=== PATIENT | male | born 1980 | race Caucasian/White ===

== ENCOUNTER 2024-09-09 16:11 | Emergency (ER) | payer BC, OTHER ==
[~2024-09-09] VITALS: Ht 188 cm; Wt 127.2 kg
[2024-09-09 16:42] VITALS: BP 117/76; PULSE 78; RESP 17; TEMP 98.1; O2SAT 98
--- NOTE | 2024-09-09 17:13 | ED.PDOC ---
HPI Comments A 44 YEAR OLD OBESE MALE PRESENTS TO THE ED WITH COMPLAINT OF FRONT SCALP LACERATION S/P HEAD TRAUMA, TODAY, AT 1548. 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 DENIES ANY LOC OR ADDITIONAL INJURIES SUSTAINED THEN; REPORTS HISTORY OF FREQUENT HEAD CONCUSSIONS IN THE PAST. PATIENT DENIES FEVER, CHILLS, SHORTNESS OF BREATH, CHEST PAIN, ABDOMINAL PAIN, NAUSEA, VOMITING, HEADACHE, OR OTHER COMPLAINTS. NO OTHER SYMPTOMS OR MODIFYING FACTORS AT THIS TIME. PATIENT IS ALERT, ORIENTED X 4, AND HAS STEADY GAIT. Chief Complaint: Laceration Time Seen by MD: 16:50 Reviewed Notes: Nurses Notes, Medications, Allergies Allergies: Coded Allergies: NO KNOWN ALLERGIES (Unverified , 09/09/24) Information Source: Patient Mode of Arrival: Ambulatory Severity: Mild Severity of Laceration: Controlled Bleeding Complexity: Simple Timing: Hours Prehospital treatment: None Laceration Location: Other (FRONT SCALP) Mechanism: Metal Last Tetanus: UTD Laceration Length (cm): 4 Skin Type: Linear Depth of Injury: SQ Tendon Injury: 0% Capillary Refill: < 3 seconds Tender: Mild Erythema: Localized to Wound Edges Associated Signs and Symptoms: None Past Medical History Past Medical History (Other): OBESITY Surgical History: Denies all surgeries Family History Family History: Unknown Social History Smoker: Non-Smoker Alcohol: Denies ETOH Use Drugs: Denies Drug Use Lives In: Home Constitutional: denies: chills, diaphoresis, fatigue, fever, malaise, sweats, weakness, others EENTM: denies: blurred vision, double vision, ear bleeding, ear discharge, ear drainage, ear pain, ear ringing, eye pain, eye redness, hearing loss, mouth pain, mouth swelling, nasal discharge, nose bleeding, nose congestion, nose pain, photophobia, tearing, throat pain, throat swelling, voice changes, others Respiratory: denies: cough, hemoptysis, orthopnea, SOB at rest, shortness of breath, SOB with excertion, stridor, wheezing, others Cardiovascular: denies: chest pain, dizzy spells, diaphoresis, Dyspnea on exertion, edema, irregular heart beat, left arm pain, lightheadedness, palpitations, PND, syncope, others Gastrointestinal: denies: abdomen distended, abdominal pain, blood streaked bowels, constipated, diarrhea, dysphagia, difficulty swallowing, hematemesis, melena, nausea, poor appetite, poor fluid intake, rectal bleeding, rectal pain, vomiting, others Genitourinary: denies: burning, dysuria, flank pain, frequency, hematuria, incontinence, penile discharge, penile sore, pain, testicle pain, testicle swelling, urgency, others Neurological: denies: dizziness, fainting, headache, left sided numbness, left sided weakness, numbness, paresthesia, pre-existing deficit, right sided numbness, right sided weakness, seizure, speech problems, tingling, tremors, weakness, others Musculoskeletal: denies: back pain, gout, joint pain, joint swelling, muscle pain, muscle stiffness, neck pain, others Integumetry: reports: laceration (FRONT SCALP ); denies: bruises, change in color, change in hair/nails, dryness, lesions, lumps, rash, wounds, others Allergic/Immunocompromised: denies: Difficulty Healing, Frequent Infections, Hives, Itching, others Hematologic/Lymphatic: denies: anemia, blood clots, easy bleeding, easy bruising, swollen glands, others Endocrine: denies: excessive hunger, excessive sweating, excessive thirst, excessive urination, flushing, intolerance to cold, intolerance to heat, unexplained weight gain, unexplained weight loss, others Psychiatric: denies: anxiety, bipolar disorder, depression, hopeless, panic disorder, schizophrenia, sleepless, suicidal, others All Other Systems: Reviewed and Negative Physical Exam General Appearance: No Apparent Distress, Obese HEENT: Head (FRONTAL SCALP LACERATION, NO BONY TENDERNESS, SWELLING AND DEFORMITY. ), Normal ENT Inspection, PERRL/EOMI, Pharynx Normal, TMs Normal Neck: Full Range of Motion, Non-Tender, Normal, Normal Inspection Respiratory: Chest Non-Tender, Lungs Clear, No Accessory Muscle Use, No Respiratory Distress, Normal Breath Sounds Cardiovascular: No Edema, No JVD, No Murmur, No Gallop, Normal Peripheral Pulses, Regular Rate/Rhythm Breast Exam: Deferred Gastrointestinal: No Organomegaly, Non Tender, No Pulsatile Mass, Normal Bowel Sounds, Soft Genitalia: Deferred Pelvic: Deferred Rectal: Deferred Extremities: No calf tenderness, Normal capillary refill, Normal inspection, Normal range of motion, Non-tender, No pedal edema Musculoskeletal : Apperance: Normal Neurologic: Alert, hematology nurse educator II-XII nml as Tested, No Motor Deficits, Normal Affect, Normal Mood, No Sensory Deficits Cerebellar Function: Normal Reflexes: Normal Skin: Dry, Lacerations (4CM LACERATION ON THE FRONTAL SCALP, NO BLEEDING AND FB. NO DEEP LACERATION. ), Normal Color, Warm Peripheral Pulses: 2+ carotid (R), 2+ carotid (L) Lymphatic: No Adenopathy Was a procedure done? Was a procedure done?: Yes Sedation Sedation?: No Laceration Repair : Location FRONT SCALP Length 4.0CM Anesthetic: Nothing Laceration Repair Prep: Saline, Shur-Clens, by Irrigation, Manual Scrub Laceration Repair Wound Comple: epidermis/dermis repair Laceration Repair: SQ, Cullen (4), Simple, Bacitracin, Gauze Informed consent obtained: No Risks, benefits, and alternati: Yes Notes PATIENT TOLERATED PROCEDURE Images 1 - Differential diagnosis Generic Laceration: Laceration X-Ray, Labs, Meds, VS Vital Signs Date Time Temp Pulse Resp B/P (MAP) Pulse Ox O2 Delivery O2 Flow Rate FiO2 09/09/24 16:42 78 17 98 Room Air 09/09/24 16:42 98.1 88 18 117/76 (90) 98 98.1 09/09/24 16:25 97.9 91 16 107/74 (85) 97 97.9 X-Ray, Labs, Meds, VS Comment EXTERNAL MEDICAL RECORDS REVIEWED: [NONE] INDEPENDENT HISTORIANS: [NONE] SOCIAL DETERMINANTS OF HEALTH: [NONE] LABS ORDERED: NONE REVIEWED AND INTERPRETED RESULTS: NONE IMAGING ORDERED: NONE TREATMENTS ORDERED: NONE PROCEDURES PERFORMED: LACERATION REPAIR KIT-STAPLER 7 LOUIS, FRONTAL SCALP CRITICAL CARE TIME: NONE I HAVE DISCUSSED THE PATIENT WITH THE ATTENDING PHYSICIAN DR. JESUS SILVA AND HE AGREES WITH THE PATIENT'S PLAN OF CARE AND DISPOSITION. BASED ON HISTORY OF PRESENT ILLNESS, AND PHYSICAL EXAM, PATIENT WILL BE DISCHARGED HOME. DISCUSSED PLAN FOR DISCHARGE HOME WITH RX IBUPROFEN. MEDICATION WARNINGS GIVEN. SHARED DECISION MAKING: DISCUSSED WITH PATIENT THAT THEIR WORKUP WAS NORMAL. PATIENT INSTRUCTED TO FOLLOW UP WITH PRIMARY CARE PROVIDER IN 1-2 DAYS FOR RE- EVALUATION OF SYMPTOMS. PATIENT VERBALIZES UNDERSTANDING TO RETURN TO ED FOR NEW OR WORSENING SYMPTOMS OR IF FOLLOW UP WITH PCP CANNOT BE OBTAINED. PATIENT FEELS COMFORTABLE GOING HOME AT THIS TIME. ALL QUESTIONS ADDRESSED AT TIME OF DISCHARGE. Time of 1ST Reevaluation: 17:10 Reevaluation 1ST: Improved Patient Education/Counseling: Diagnosis, Treatment, Need For Follow Up Family Education/Counseling: Diagnosis, Treatment, No Family Present Medical Screening: No EMC Exist At This Time Departure 1 Departure Time of Disposition: 17:20 Impression: Primary Impression: Laceration of scalp without complication Qualified Codes: S01.01XA - Laceration without foreign body of scalp, initial encounter Disposition: HOME / SELF CARE / HOMELESS Condition: Stable Additional Instructions: Discharge Note: Continue on your medications. Drink plenty of fluids. Follow up with your primary Dr. Take your prescriptions as ordered. If your condition becomes worse call and follow up with your primary Dr. for instructions or return to the ER if needed. Have the stitches/louis removed in 7-10 days. Keep wound clean and dry. Have a wound check in 2 days. Thank you for visiting [facility]. Discharged With: Self Critical Care Note Critical Care Time?: No Stability Stability form required: No Heart Score Heart Score: Heart Score Response (Comments) Value History N/A 0 EKG N/A 0 Age N/A 0 Risk Factors N/A 0 Troponin N/A 0 Total 0 I personally scribed for VAISHALI GOOD ([email or web address]) on 09/09/24 at 17:13. Electronically submitted by Colby Stuart ([email or web address]). VAISHALI GOOD September 09, 2024 17:13
== END 2024-09-09 17:41 | disposition home or self-care (01) ==
LOC: ER 16:23
DX: S01.01XA Laceration without foreign body of scalp, initial encounter (principal); E66.9 Obesity, unspecified; Z68.36 Body mass index [BMI] 36.0-36.9, adult; W22.8XXA Striking against or struck by other objects, initial encounter; Y93.89 Activity, other specified; Y92.098 Other place in other non-institutional residence as the place of occurrence of the external cause; Y99.8 Other external cause status
CPT/HCPCS: 12002; 12013